=== PATIENT | male | born 2000 | race Caucasian/White ===

== ENCOUNTER 2020-08-09 20:21 | Emergency (ER) | payer OTHER ==
[~2020-08-09] VITALS: Ht 175.2 cm; Wt 68.2 kg
--- NOTE | 2020-08-09 20:30 | ED Upper Extremity ---
General Chief Complaint: Laceration Stated Complaint: LACERATION TO LEFT ARM Source: patient Exam Limitations: no limitations History of Present Illness Date Seen by Provider: Aug 09, 2020 Time Seen by Provider: 20:28 Initial Comments To ER with a laceration to the ulnar side of the distal forearm on the left from a broken soap mohan in his shower. This occurred just prior to arrival. Vaccines are up-to-date Onset: just prior to arrival Severity: mild Pain/Injury Location: left forearm Method of Injury: direct blow Modifying Factors: Worse With Movement Allergies and Home Medications Home Medications Multivitamin 1 Each Tablet, 1 EACH PO DAILY, (Reported) Patient Home Medication List Home Medication List Reviewed: Yes Review of Systems Constitutional: see HPI EENTM: see HPI Respiratory: no symptoms reported Cardiovascular: no symptoms reported Genitourinary: no symptoms reported Musculoskeletal: see HPI Skin: see HPI Psychiatric/Neurological: No Symptoms Reported Past [id number]-Ufiabk Hx Patient Social History Recent Foreign Travel: No Contact w/Someone Who Travel: No Physical Exam Vital Signs Vital Signs - First Documented 08/09/20 20:22 Temp 36.9 Pulse 77 Resp 16 B/P (MAP) 151/89 (109) Pulse Ox 100 O2 Delivery Room Air Capillary Refill : Height, Weight, BMI Height: '" Weight: lbs. oz. kg; BMI Method: General Appearance: WD/WN, no apparent distress Neck: non-tender, full range of motion Respiratory: no respiratory distress, no accessory muscle use Elbow/Forearm: Left, soft tissue tenderness (there is a 2.5 cm laceration V- shaped down to the subcutaneous tissue on the left. Normal sensation flexor and extensor tendon functions at the fingers and wrist.) Wrist: Yes normal inspection, Yes non-tender Hand: normal inspection, non-tender Neurologic/Psychiatric: alert, normal mood/affect, oriented x 3 Skin: normal color, warm/dry Procedures/Interventions Wound Location: Upper Extremities Wound Length (cm): 2.5 Wound's Depth, Shape: linear, sub Q Wound Explored: clean Anesthesia: Lidocaine w/ Epi Suture Size: 4-0 Number of Sutures: 3 Layer Closure?: 1 Number Deep Layer Sutures: 0 Progress/Results/Core Measures Results/Orders Vital Signs/I&O 08/09/20 20:22 Temp 36.9 Pulse 77 Resp 16 B/P (MAP) 151/89 (109) Pulse Ox 100 O2 Delivery Room Air Departure Impression Primary Impression: Forearm laceration Disposition: 01 HOME, SELF-CARE Condition: Stable Departure-Patient Inst. Decision time for Depature: 20:30 Patient Instructions: Laceration Repair With Stitches (DC) Add. Discharge Instructions: You can take the Band-Aid off tomorrow leaving this open to air if you would like for you could leave it covered with a Band-Aid, which ever he would prefer. You can shower letting water run over this starting tomorrow. Return to ER for any sign of infection such as redness swelling or pus like drainage. Otherwise return to the emergency room in about 7-10 days whenever it is convenient for you to have the stitches removed. All discharge instructions reviewed with patient and/or family. Voiced understanding. FRANCINE MARTINEZ APRN Aug 09, 2020 20:30
[2020-08-09] MEDS ORDERED: MULT-1136 PO (20:32)
[2020-08-09 20:42] VITALS: BP 151/89
== END 2020-08-09 20:40 | disposition home or self-care (01) ==
LOC: ER 20:22
DX: S51.812A Laceration without foreign body of left forearm, initial encounter (principal); W18.2XXA Fall in (into) shower or empty bathtub, initial encounter
CPT/HCPCS: 12001

== ENCOUNTER 2020-08-18 16:52 | Emergency (ER) | payer OTHER ==
[~2020-08-18] VITALS: Ht 175.2 cm; Wt 68.0 kg
[~2020-08-18 16:52] MED LIST: MULT-1136 PO
[2020-08-18 17:29] VITALS: BP 135/79
== END 2020-08-18 17:44 | disposition home or self-care (01) ==
LOC: EDUNIT# 16:52 → ER 16:54
DX: S41.112D Laceration without foreign body of left upper arm, subsequent encounter (principal); X58.XXXD Exposure to other specified factors, subsequent encounter